=== PATIENT | female | born 1965 ===

== ENCOUNTER → 2017-08-29 | Emergency (ER) | payer OTHER ==
[~2017-08-29] MED LIST: CATAFLAM50 MG PO; JANUVIA50 MG; JANUVIA50 MG PO; NORFLEX100MG PO; SIMVASTATIN40 MG; SIMVASTATIN40 MG PO; VOLTAREM 50 MG PO
== END | disposition left against medical advice (07) ==
LOC: ER 16:49
DX: Z53.20 Procedure and treatment not carried out because of patient's decision for unspecified reasons (principal)